=== PATIENT | female | born 1975 | race Caucasian/White ===

== ENCOUNTER 2024-03-18 14:29 | Emergency (ER) | payer MEDICAID, OTHER, SELFPAY ==
[2024-03-18] VITALS (10 sets, daily range): BP systolic 110–174; BP diastolic 55–87; PULSE 82–109; RESP 24; TEMP 36.2; O2SAT 93–100; BMI 20.3
--- NOTE | 2024-03-18 14:47 | DI.RAD.S_ITS ---
PROCEDURE: XR CHEST 1V INDICATIONS: chest pain TECHNIQUE: One view of the chest was acquired. COMPARISON: [facility], CR, XR CHEST 1 VIEW, 11/16/2023, 15:37. FINDINGS: Surgical changes and devices: None. Lungs and pleura: Lungs are clear. No pleural effusions or pneumothorax. Mediastinum: Mediastinal contours appear normal. Heart size is normal. Bones and chest wall: No suspicious bony lesions. Overlying soft tissues appear unremarkable. IMPRESSION: No acute cardiopulmonary abnormality is seen. Dictated by: Romeo Badillo M.D. on 03/18/2024 at 15:32 Approved by: Romeo Badillo M.D. on 03/18/2024 at 15:32
[2024-03-18 15:38] LABS: Bacteria Urine None Seen; Culture Indicated Urine Cult Not Indicated; RBC Urine None Seen (0-5/HPF); Squamous Epithelial Cell Urine None Seen (0-5/HPF); Urine Volume Low Vol <10mL (spun); WBC Urine None Seen (0-5/HPF)
[2024-03-18] MEDS: PROCHLORPERAZINE 10 MG/2 ML VIAL IV (15:56)
[2024-03-18 16:04] LABS: Add Manual Diff / Slide Review NO; Basophils Absolute Auto 100 /uL (0-100); Basophils Percent Auto 0.6 % (0-2); Eosinophils Absolute Auto 0 /uL (0-450); Hemoglobin 13.7 g/dL (12.0-16.0); Lymphocytes Absolute Auto 600 /uL (1100-4500); Lymphocytes Percent Auto 4.7 % (25-40); Mean Corpuscular HGB Conc 33.3 % (30-36); Mean Corpuscular Hemoglobin 29.3 PG (26-34); Mean Corpuscular Volume 87.9 fL (80-100); Monocytes Absolute Auto 200 /uL (0-900); Monocytes Percent Auto 1.5 % (3-14); Neutrophils Absolute Auto 11800 /uL (1500-7000); Neutrophils Percent Auto 93.2 % (50-75); Platelet Count 302 X10^3/uL (150-400); Red Blood Cell Count 4.67 X10^6/uL (4.0-5.2); Red Cell Distribution Width 14.7 % (11.6-14.8); White Blood Cell Count 12.7 X10^3/uL (4.5-11.0)
[2024-03-18 16:14] LABS: PO2 VBG 60 mmHg (35-45)
[2024-03-18 16:15] LABS: Base Excess VBG -0.2 mmol/L (0-4); Fractionated Inspired Oxygen 21; HCO3 VBG 22 mmol/L (24-28); Oxygen Saturation VBG 93 % (70-75); Total CO2 VBG 21 mmol/L (24-29)
[2024-03-18 16:16] LABS: INR 1.1 (0.9-1.3); Prothrombin Time 12.1 SECONDS (9.4-12.5)
[2024-03-18 16:19] LABS: PTT Partial Thromboplastin Tim 34 SECONDS (25.1-36.5)
[2024-03-18 16:25] LABS: Alanine Aminotransferase 38 IU/L (<35); Albumin 4.8 g/dL (3.5-5.0); Albumin Globulin Ratio 1.3 (1.0-2.8); Alkaline Phosphatase 121 U/L (38-126); Aspartate Aminotransferase 37 IU/L (14-36); BUN Creatinine Ratio 29.1 (6-22); Bilirubin Total 0.5 mg/dL (0.2-1.3); Blood Urea Nitrogen 16 mg/dL (7-17); Calcium 9.6 mg/dL (8.4-10.2); Carbon Dioxide 22 mmol/L (22-32); Chloride 104 mmol/L (98-107); Creatine Kinase 91 U/L (30-135); Estimated Glomerular Filt Rate > 60 mL/min (>60); Globulin 3.7 g/dL (1.7-4.1); Glucose 311 mg/dL (70-100); HEMOLYSIS < 15 (0-50); Lipase 53 U/L (23-300); Magnesium 1.4 mg/dL (1.6-2.3); Potassium 3.9 mmol/L (3.4-5.1); Sodium 137 mmol/L (137-145); Total Protein 8.5 g/dL (6.3-8.2)
[2024-03-18 16:35] LABS: NT-proBNP (BNP-Adult 18+) 80 pg/mL (<125); Troponin I < 0.012 ng/mL (0.01-0.034)
--- NOTE | 2024-03-18 17:14 | ED_ITS ---
HPI - General Adult General Chief complaint: Diabetic Problem Stated complaint: diabetic, chest pain, diff breathing Time Seen by Provider: 03/18/24 16:04 Source: patient Mode of arrival: Ambulatory History of Present Illness HPI narrative: Patient here with for nausea vomiting headache. Has had chills. Patient is diabetic. She states when she is over work/overheated she states it triggers her diabetes and has gone into DKA before. She works for the [employer]. She has been out in the heat for the past 10 days. This morning 6:00 a.m. she started having nausea and vomiting and headache. No chest pain no back pain. Has had abdominal discomfort from vomiting. Patient has had Toradol and Ativan in the past without allergy denies denies any chest pain or back pain Related Data Allergies Allergy/AdvReac Type Severity Reaction Status Date / Time aspirin Allergy Difficulty Verified 03/18/24 14:53 Breathing metoclopramide [From Reglan] Allergy Difficulty Verified 03/18/24 14:53 Breathing ondansetron [From Zofran] Allergy Difficulty Verified 03/18/24 14:53 Breathing Review of Systems Review of Systems Narrative: GENERAL: Positive chills, fatigue, malaise, negative fever, sweats. HEENT: negative sinus pain, ear pain, sore throat RESPIRATORY: negative dyspnea, cough CARDIOVASCULAR: negative chest pain, palpitations GASTROINTESTINAL: Positive nausea, vomiting, abdominal pain : negative dysuria, frequency, hematuria MUSCULOSKELETAL: negative muscle or bony pain SKIN: negative rash, skin lesions NEUROLOGIC: negative weakness, numbness, positive headache Patient History tobacco type: vaping Substance Use Type: marijuana Exam Narrative Exam Narrative: GENERAL: in no distress, not toxic not dyspneic HEAD: Normocephalic. EYES: Pupils equal round no papilledema no photophobia on fundoscope ENT: Mucous membranes moist. NECK: Trachea midline. Full active range of motion no nuchal rigidity no meningeal sign CARDIOVASCULAR: Regular rate and rhythm RESPIRATORY: Clear to auscultation. Breath sounds equal bilaterally. No wheezes, rales, or rhonchi. GASTROINTESTINAL: Abdomen soft, non-tender abdomen is soft flat nontender no peritoneal signs. EXTREMITIES: No gross deformities. BACK: No flank tenderness. NEURO: AOx4. Clear speech SKIN: Warm and dry PSYCH: Not anxious, is cooperative Initial Vital Signs Initial Vital Signs: Vital Signs Temperature 97.2 F L 03/18/24 14:40 Pulse Rate 102 H 03/18/24 14:40 Respiratory Rate 24 03/18/24 14:40 Blood Pressure 174/87 H 03/18/24 14:40 Pulse Oximetry 100 03/18/24 14:40 Oxygen Delivery Method Room Air 03/18/24 14:40 Course Orders Ordered: Discontinued Medications Sodium Chloride (Normal Saline 0.9%) 1,000 mls @ 1,000 mls/hr IV BOLUS ONE Stop: 03/18/24 18:29 Last Infusion: 03/18/24 18:46 Dose: Infused Documented By: Admin: 03/18/24 17:30 Dose: 1,000 mls/hr Documented By: VADIM Ketorolac Tromethamine (Ketorolac 30 Mg/Ml Vial) 15 mg IV NOW ONE Stop: 03/18/24 17:14 Last Admin: 03/18/24 17:27 Dose: 15 mg Documented By: VADIM Lorazepam (Lorazepam 2 Mg/Ml Inj) 0.5 mg IV NOW ONE Stop: 03/18/24 17:31 Last Admin: 03/18/24 17:27 Dose: 0.5 mg Documented By: VADIM Prochlorperazine (Prochlorperazine 10 Mg/2 Ml Vial) 10 mg IV NOW ONE Stop: 03/18/24 15:51 Last Admin: 03/18/24 15:56 Dose: 10 mg Documented By: VADIM Vital Signs Vital signs: Vital Signs - 8 hr 03/18/24 14:40 03/18/24 16:46 03/18/24 16:47 Temperature 97.2 F L Pulse Rate 102 H 109 H 94 H Respiratory Rate 24 Blood Pressure 174/87 H Pulse Oximetry 100 93 99 Oxygen Delivery Method Room Air Room Air 03/18/24 16:47 03/18/24 17:00 03/18/24 17:00 Temperature Pulse Rate 84 Respiratory Rate Blood Pressure 121/61 110/55 L Pulse Oximetry 95 Oxygen Delivery Method 03/18/24 17:30 03/18/24 18:00 03/18/24 18:01 Temperature Pulse Rate 87 82 85 Respiratory Rate Blood Pressure Pulse Oximetry 98 96 97 Oxygen Delivery Method 03/18/24 18:01 03/18/24 18:30 03/18/24 19:00 Temperature Pulse Rate 85 89 Respiratory Rate Blood Pressure 147/68 H Pulse Oximetry 95 94 Oxygen Delivery Method Medical Decision Making Lab Data 03/18/24 15:55 03/18/24 15:55 Labs: Lab Results 03/18/24 03/18/24 03/18/24 Range/Units 15:05 15:55 15:58 WBC 12.7 H (4.5-11.0) X10^3/uL RBC 4.67 (4.0-5.2) X10^6/uL Hgb 13.7 (12.0-16.0) g/dL Hct 41.0 (36-46) % MCV 87.9 (80-100) fL MCH 29.3 (26-34) PG MCHC 33.3 (30-36) % RDW 14.7 (11.6-14.8) % Plt Count 302 (150-400) X10^3/uL Neut % (Auto) 93.2 H (50-75) % Lymph % (Auto) 4.7 L (25-40) % [place] % (Auto) 1.5 L (3-14) % Eos % (Auto) 0.0 L (2-4) % Baso % (Auto) 0.6 (0-2) % Neut # (Auto) 21584 H (3499-6991) /uL Lymph # (Auto) 600 L (6005-6373) /uL [place] # (Auto) 200 (0-900) /uL Eos # (Auto) 0 (0-450) /uL Baso # (Auto) 100 (0-100) /uL PT 12.1 (9.4-12.5) SECONDS INR 1.1 (0.9-1.3) APTT 34 (25.1-36.5) SECONDS VBG pH 7.50 H (7.33-7.43) VBG pCO2 28.0 L (45-50) mmHg VBG pO2 60 H (35-45) mmHg VBG HCO3 22 L (24-28) mmol/L VBG Total CO2 21 L (24-29) mmol/L VBG O2 Saturation 93 H (70-75) % VBG Base Excess -0.2 L (0-4) mmol/L FiO2 21 Sodium 137 (137-145) mmol/L Potassium 3.9 (3.4-5.1) mmol/L Chloride 104 (98-107) mmol/L Carbon Dioxide 22 (22-32) mmol/L BUN 16 (7-17) mg/dL Creatinine 0.55 (0.52-1.04) mg/dL Estimated GFR > 60 (>60) mL/min BUN/Creatinine Ratio 29.1 H (6-22) Glucose 311 H (70-100) mg/dL Calcium 9.6 (8.4-10.2) mg/dL Magnesium 1.4 L (1.6-2.3) mg/dL Total Bilirubin 0.5 (0.2-1.3) mg/dL AST 37 H (14-36) IU/L ALT 38 H (<35) IU/L Alkaline Phosphatase 121 (38-126) U/L Total Creatine Kinase 91 (30-135) U/L Troponin I < 0.012 (0.01-0.034) ng/mL NT-Pro-B Natriuret Pep 80 (<125) pg/mL Total Protein 8.5 H (6.3-8.2) g/dL Albumin 4.8 (3.5-5.0) g/dL Globulin 3.7 (1.7-4.1) g/dL Albumin/Globulin Ratio 1.3 (1.0-2.8) Lipase 53 (23-300) U/L Urine RBC None seen (0-5/HPF) Urine WBC None seen (0-5/HPF) Ur Squamous Epith Cells None seen (0-5/HPF) Urine Bacteria None seen (None) Ur Culture Indicated? Cult not indicated Vol Urine Centrifuged Low vol <10ml (spun) A Point of Care Testing Glucose POC 276 Urine Dip Bedside Urine Glucose 1000 mg/dl Bedside Urine Bilirubin - Negative Bedside Urine Ketone +++ 80 Urine Specific [place] 1.015 Bedside Urine Occult Blood - Negative Bedside Urine pH 6.5 Bedside Urine Protein + 30 Bedside Urine Urobilinogen - Negative Bedside Urine Nitrite - Negative Bedside Urine Leukocytes - Negative Esterase Point of care testing: Point of Care Testing Glucose POC 276 Urine Dip Bedside Urine Glucose 1000 mg/dl Bedside Urine Bilirubin - Negative Bedside Urine Ketone +++ 80 Urine Specific [place] 1.015 Bedside Urine Occult Blood - Negative Bedside Urine pH 6.5 Bedside Urine Protein + 30 Bedside Urine Urobilinogen - Negative Bedside Urine Nitrite - Negative Bedside Urine Leukocytes - Negative Esterase Imaging Data Chest x-ray: Radiologist's Impression: [address] [address] XRay Report Signed Patient: Carole Castelan MR#: [id number] : 1975 Acct:[id number] Age/Sex: 48 / F Date of Service: 03/18/24 Loc: ED Accession Number: [id number] Procedure: XR chest 1V Ordering Provider: Shawn Gonzalez MD PROCEDURE: XR CHEST 1V INDICATIONS: chest pain TECHNIQUE: One view of the chest was acquired. COMPARISON: [facility], , XR CHEST 1 VIEW, 11/16/2023, 15:37. FINDINGS: Surgical changes and devices: None. Lungs and pleura: Lungs are clear. No pleural effusions or pneumothorax. Mediastinum: Mediastinal contours appear normal. Heart size is normal. Bones and chest wall: No suspicious bony lesions. Overlying soft tissues appear unremarkable. IMPRESSION: No acute cardiopulmonary abnormality is seen. Dictated by: Romeo Badillo M.D. on 03/18/2024 at 15:32 Approved by: Romeo Badillo M.D. on 03/18/2024 at 15:32 [facility] Narrative Medical decision making narrative: Patient here with for nausea vomiting headache. Has had chills. Patient is diabetic. She states when she is over work/overheated she states it triggers her diabetes and has gone into DKA before. She works for the [employer]. She has been out in the heat for the past 10 days. This morning 6:00 a.m. she started having nausea and vomiting and headache. No chest pain no back pain. Has had abdominal discomfort from vomiting. After history and exam CBC CMP VBG acetone urinalysis Compazine normal saline EKG troponin MDM Medical records reviewed: No recent visit for this complaint Differential considered: Includes but not limited to dehydration DKA fatigue migraine headache Lab Test results independently reviewed as above. Pertinent findings: WBC 12.7 hemoglobin 13.7 hematocrit 41 VBG pH 7.5 pCO2 28 PO2 60 sodium 137 potassium 3.9 bicarb 22 BUN 16 creatinine 0.55 GFR greater than 60 glucose 311 troponin less than 0.012 Urinalysis negative bacteria positive 80+ ketones negative nitrite negative leukocyte EKG normal sinus rhythm rate [address] elevation Independently reviewed EKG sinus rhythm rate [address] elevation or depression Imaging studies independently reviewed: Chest x-ray no acute finding Consultations: None indicated this time Treatments: Compazine normal saline Toradol Ativan Re-evaluations: 7:08 p.m.. Patient feels much better has been sleeping comfortably. She desires discharge home. No headache no nausea or vomiting. I reviewed with her again any other concerns that she may have. She says no chest pain or back pain. She states she has been working too hard out in the sun at the [employer] for the past 10 days. She is worn out. Discussion: Appropriate for discharge home. She states she has had high sugars because of stress in the past. She has been working 10 days straight and out in the heat. She feels exhausted and dehydrated. Urinalysis does show ketones which agrees with dehydration. She feels much better after IV fluids and conservative medication. No headache no abdominal pain no nausea or vomiting at time of discharge. No meningeal signs. No fever here. Leukocytosis likely due to dehydration. Hemoconcentration. Return precautions reviewed. She desires discharge home. She is happy with workup here. Blood sugar has improved to 278. Patient not toxic. Laboratory studies are reassuring, not in DKA. Bicarb of 22. VBG is reassuring Diagnosis: Dehydration/fatigue/hyperglycemia Discharge Plan Departure Patient Disposition: Home Clinical Impression: Acute hyperglycemia Fatigue Qualifiers: Fatigue type: due to excessive exertion Encounter type: initial encounter Q ualified Code(s): T73.3XXA - Exhaustion due to excessive exertion, initial encounter Instructions: DI for Fatigue, DI for Hyperglycemia -- Adult Activity Restrictions/Additional Instructions: Please get plenty of rest. Keep well hydrated. Continue your home medications and diabetes medications. Work note has been provided for you. No prescriptions are indicated this time. No driving or operating machinery tonight. See your family doctor's week for re-evaluation. Please keep out of the sun and heat. Return if worse if any questions or concerns. Keep well hydrated. Stand Alone Forms: Patient Portal/API, Work Release Note
[2024-03-18] MEDS: LORazepam 2 MG/ML INJ 0.5 MG IV (17:27)
[2024-03-18] MEDS: KETOROLAC 30 MG/ML VIAL 15 MG IV (17:27)
[2024-03-18] MEDS: SODIUM CHLORIDE 0.9% 1,000 ML 1000 ML IV (17:30)
--- NOTE | 2024-03-18 17:33 | EKG_ITS ---
[address] [address] [place] [address] Test Date: 2024-03-18 Pat Name: Carole Castelan Department: [facility] Room: Gender: Female [place]: KATE : 1975 Requested By: Order Number: [id number] Reading MD: Mando Paige MD Measurements Intervals [place] Rate: 91 P: 93 NM: 132 QRS: 82 QRSD: 96 T: 42 QT: 412 QTc: 506 Interpretive Statements Normal sinus rhythm Minimal voltage criteria for LVH, may be normal variant ( [place] ) Nonspecific ST abnormality Prolonged QT NO PRIOR TRACING Electronically Signed On 03-19-2024 8:53:46 PDT by Mando Paige MD
== END 2024-03-18 19:23 | disposition home or self-care (01) ==
PROVIDERS: Emergency Provider Emergency Medicine
DX: E11.65 Type 2 diabetes mellitus with hyperglycemia (principal); T73.3XXA Exhaustion due to excessive exertion, initial encounter; R07.9 Chest pain, unspecified
CPT/HCPCS: 36415; 71045; 80053; 81003; 81015; 82550; 82805; 82962; 83690; 83735; 83880; 84484; 85025; 85610; 85730; 93005; 96361; 96374; 96375; 99284; J0780; J1885; J2060